=== PATIENT | male | born 1950 | race Caucasian/White ===

== ENCOUNTER 2017-11-20 20:04 | Emergency (ER) | payer OTHER ==
[~2017-11-20] VITALS: Ht 177.8 cm; Wt 81.8 kg
[2017-11-20] MEDS ORDERED: ATOR80TA59 (20:13)
[2017-11-20] MEDS ORDERED: MULT1TAB18 PO (20:13)
[2017-11-20] MEDS ORDERED: FISH120012 PO (20:13)
[2017-11-20] MEDS ORDERED: FOLI800C PO (20:13)
[2017-11-20] MEDS ORDERED: ELIQ5TAB (20:13)
[2017-11-20] MEDS ORDERED: ATEN25TA (20:13)
[2017-11-20] MEDS ORDERED: MORPHINE 2 MG/ML 1ML SYRINGE IV PRN (20:45)
[2017-11-20] MEDS ORDERED: ONDANSETRON 4MG/2ML VIAL (J2405) IV ONE (20:45)
[2017-11-20 20:57] LABS: BASO % 0.3 % (0.0-1.0); EOS # 0.1 10^3/uL (0.0-0.50); EOS % 1.1 % (0.0-3.0); IMMATURE GRANULOCYTE % 0.3 % (0-0); LYMPH # 1.5 10^3/uL (1.5-4.5); LYMPH % 15.9 % (24.0-44.0); MEAN CORPUSCULAR HEMOGLOBIN 32.2 pg (27.0-33.0); MEAN CORPUSCULAR HGB CONC 34.6 g/dl (32.0-36.5); MEAN CORPUSCULAR VOLUME 93.2 fl (80.0-96.0); MONO # 0.5 10^3/uL (0.0-0.8); MONO % 5.3 % (0.0-5.0); NEUTROPHILS # 7.5 10^3/uL (1.8-7.7); NEUTROPHILS % 77.1 % (36.0-66.0); PLATELET COUNT, AUTOMATED 162 10^3/uL (150-450); RED CELL DISTRIBUTION WIDTH 11.9 % (11.5-14.5); WHITE BLOOD COUNT 9.7 10^3/uL (4.0-10.0)
[2017-11-20 21:08] LABS: INR 1.14
[2017-11-20 21:23] LABS: ALBUMIN 4.1 GM/DL (3.2-5.2); ALBUMIN/GLOBULIN RATIO 1.17 (1.00-1.93); ALKALINE PHOSPHATASE 119 U/L (45-117); ALT/SGPT 23 U/L (12-78); ANION GAP 7 MEQ/L (8-16); AST/SGOT 12 U/L (7-37); BILIRUBIN,DIRECT 0.4 MG/DL (0.0-0.2); BILIRUBIN,TOTAL 1.2 MG/DL (0.2-1.0); BLOOD UREA NITROGEN 22 MG/DL (7-18); CALCIUM LEVEL 8.9 MG/DL (8.8-10.2); CARBON DIOXIDE LEVEL 27 MEQ/L (21-32); CHLORIDE LEVEL 105 MEQ/L (98-107); CREATININE FOR GFR 1.13 MG/DL (0.70-1.30); GLOMERULAR FILTRATION RATE > 60.0 (>49); GLUCOSE, FASTING 164 MG/DL (80-110); POTASSIUM SERUM 4.2 MEQ/L (3.5-5.1); SODIUM LEVEL 139 MEQ/L (136-145); TOTAL PROTEIN 7.6 GM/DL (6.4-8.2)
[2017-11-20] MEDS ORDERED: ISOVUE-370 76% 100ML VIAL (Q9967) As Ordered ONE (21:32)
--- NOTE | 2017-11-20 22:30 | REPUSA ---
CT of the abdomen and pelvis with contrast Clinical statement: Pain. Technique: Multiple axial CT images were obtained from the base of the lungs through the floor of the pelvis utilizing 5 mm axial slices after administration of nonionic intravenous contrast. Coronal an d sagittal reconstructions were also obtained. No comparison is available. Findings: Chest: The visualized lung bases are clear. Abdomen: There is a focal low attenuation lesion in the neck of the pancreas, measuring 1.2 x 1.8 cm. Distal to this site is significant pancreatic ductal dilatation, measuring up to 12 mm. There is no biliary ductal dilatation. The liver, spleen, kidneys, gallbladder, and adrenal glands are grossly un remarkable. There is a simple cyst in the posterior left kidney measuring 2.2 x 2.1 cm. The aorta dem onstrates moderate diffuse atherosclerosis. There is a borderline infrarenal abdominal aortic aneurys m measuring 3.0 x 2.6 cm. There is no evidence of dissection. There is no evidence of abdominal lymph adenopathy or ascites. Pelvis: The bowel is unremarkable, with no obstructive or inflammatory changes. The urinary bladder i s within normal limits. The prostate is enlarged measuring 5.2 x 5.6 cm. There is no evidence of pelv ic lymphadenopathy or ascites. Bones: There are no suspicious osseous abnormalities seen. There is mild degenerative disc disease at L3/L4. Impression: 1. Suspected hypodense mass the neck of the pancreas causing significant distal pancreatic ductal dil atation. Pancreatic neoplasm must be the primary clinical concern. Follow-up is recommended as clinic ally indicated. 2. No evidence of intrahepatic or extrahepatic biliary ductal dilatation. 3. No evidence of lymphadenopathy. 4. Moderate diffuse atherosclerosis of the abdominal aorta, with borderline infrarenal abdominal aort ic aneurysm. No evidence of dissection. 5. No obstructive or inflammatory bowel changes. 6. Simple left renal cyst. 7. Enlarged prostate. 8. Mild degenerative disc disease at L3/L4.
[2017-11-21] MEDS ORDERED: NS 1,000 ML IV ONE
[2017-11-21 01:17] VITALS: BP 120/88
--- NOTE | 2017-11-21 17:03 | ECGEPIP ---
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
== END 2017-11-21 01:23 | disposition short-term general hospital (02) ==
LOC: M ED 20:04
DX: K86.9 Disease of pancreas, unspecified (principal); I25.10 Atherosclerotic heart disease of native coronary artery without angina pectoris; I48.91 Unspecified atrial fibrillation; Z95.5 Presence of coronary angioplasty implant and graft; Z79.899 Other long term (current) drug therapy; Z79.01 Long term (current) use of anticoagulants; Z88.0 Allergy status to penicillin; F17.210 Nicotine dependence, cigarettes, uncomplicated
CPT/HCPCS: 74177; 80048; 80076; 81001; 82550; 82553; 83690; 84484; 85025; 85610; 85730; 86850; 86900; 86901; 93005; 93041; 96374; 96375; 99285; J2405; Q9967

== ENCOUNTER → 2018-02-02 | Outpatient (REF) | payer MEDICARE, OTHER ==
[2018-02-02 11:40] LABS: ANION GAP 5 MEQ/L (8-16); BLOOD UREA NITROGEN 23 MG/DL (7-18); CALCIUM LEVEL 9.2 MG/DL (8.8-10.2); CARBON DIOXIDE LEVEL 29 MEQ/L (21-32); CHLORIDE LEVEL 99 MEQ/L (98-107); CREATININE FOR GFR 1.17 MG/DL (0.70-1.30); GLOMERULAR FILTRATION RATE > 60.0 (>49); IRON (FE) 65 UG/DL (65-175); PSA SCREENING 2.73 NG/ML (< 4.0); SODIUM LEVEL 133 MEQ/L (136-145)
[2018-02-02 12:20] LABS: TOTAL 25(OH) VITAMIN D 29.1 NG/ML (30.0-100.0)
[2018-02-02 12:40] LABS: ESTIMATED AVERAGE GLUCOSE 252 MG/DL (60-110); HEMOGLOBIN A1c 10.4 %
[2018-02-02 13:04] LABS: VITAMIN B12 LEVEL 600 PG/ML (247-911)
[2018-02-02 13:34] LABS: GLUCOSE, FASTING 439 MG/DL (70-100)
== END ==
LOC: M SFHCPLAZ 09:08
DX: C25.9 Malignant neoplasm of pancreas, unspecified (principal); R53.83 Other fatigue; R35.8 Other polyuria; N40.0 Benign prostatic hyperplasia without lower urinary tract symptoms; Z12.5 Encounter for screening for malignant neoplasm of prostate; R73.01 Impaired fasting glucose; Z79.899 Other long term (current) drug therapy
CPT/HCPCS: 83540

== ENCOUNTER → 2018-02-24 | Outpatient (REF) | payer OTHER, MEDICARE ==
[2018-02-24 19:39] LABS: CA19-9 TUMOR MARKER,CARBOHYDRA 64.8 U/ML (<35.0)
== END ==
LOC: M LAB REF 18:38
DX: C25.9 Malignant neoplasm of pancreas, unspecified (principal)
CPT/HCPCS: 86301

== ENCOUNTER → 2018-03-03 | Outpatient (REF) | payer OTHER, MEDICARE ==
[2018-03-03 20:07] LABS: CA19-9 TUMOR MARKER,CARBOHYDRA 26.9 U/ML (<35.0)
== END ==
LOC: M LAB REF 16:37
DX: C25.9 Malignant neoplasm of pancreas, unspecified (principal)
CPT/HCPCS: 86301

== ENCOUNTER → 2018-03-31 | Outpatient (REF) | payer OTHER ==
[2018-03-31 21:37] LABS: CA19-9 TUMOR MARKER,CARBOHYDRA 16.3 U/ML (<35.0)
== END ==
LOC: M LAB REF 19:19
DX: C25.0 Malignant neoplasm of head of pancreas (principal)
CPT/HCPCS: 86301

== ENCOUNTER → 2018-04-08 | Outpatient (CLI) | payer OTHER ==
[~2018-04-08] MED LIST: ISOVUE-370 76% 100ML VIAL (Q9967) As Ordered
== END ==
LOC: M RAD 17:11
DX: C25.9 Malignant neoplasm of pancreas, unspecified (principal)
CPT/HCPCS: Q9967

== ENCOUNTER → 2018-04-10 | Outpatient (CLI) | payer OTHER ==
[~2018-04-10] MED LIST changes: -ISOVUE-370 76% 100ML VIAL (Q9967) As Ordered; +PROHANCE 279.3MG/ML 15ML VIAL (A9576) As Ordered
== END ==
LOC: M RAD 12:51
DX: K86.89 Other specified diseases of pancreas (principal); K86.2 Cyst of pancreas
CPT/HCPCS: A9576

== ENCOUNTER → 2018-04-29 | Outpatient (CLI) | payer OTHER | LOC: M RAD 12:26 | DX: M79.89 Other specified soft tissue disorders (principal); C25.9 Malignant neoplasm of pancreas, unspecified | CPT/HCPCS: 93971 ==

== ENCOUNTER 2018-05-31 22:14 | Emergency (ER) | payer OTHER ==
[2018-05-31] MEDS: HYDROmorphone HCL 1 MG/ML SYRINGE (J1170) IV (23:49)
[2018-05-31] MEDS: NS 1,000 ML IV (23:49)
[2018-05-31 23:50] LABS: BASO % 0.4 % (0.0-1.0); EOS # 0.1 10^3/uL (0.0-0.50); EOS % 2.3 % (0.0-3.0); HEMATOCRIT 36.4 % (42.0-52.0); HEMOGLOBIN 11.9 g/dl (13.5-17.5); IMMATURE GRANULOCYTE % 0.4 % (0-3.0); LYMPH # 1.6 10^3/uL (1.5-4.5); LYMPH % 28.6 % (24.0-44.0); MEAN CORPUSCULAR HEMOGLOBIN 33.1 pg (27.0-33.0); MEAN CORPUSCULAR HGB CONC 32.7 g/dl (32.0-36.5); MEAN CORPUSCULAR VOLUME 101.4 fl (80.0-96.0); MONO # 0.5 10^3/uL (0.0-0.8); MONO % 8.2 % (0.0-5.0); NEUTROPHILS # 3.4 10^3/uL (1.8-7.7); NEUTROPHILS % 60.1 % (36.0-66.0); PLATELET COUNT, AUTOMATED 130 10^3/uL (150-450); RED BLOOD COUNT 3.59 10^6/uL (4.30-6.10); RED CELL DISTRIBUTION WIDTH 13.7 % (11.5-14.5); WHITE BLOOD COUNT 5.6 10^3/uL (4.0-10.0)
[2018-06-01 00:15] LABS: LACTIC ACID SEPSIS PROTOCOL 0.8 MMOL/L (0.4-2.0)
[2018-06-01 00:18] LABS: ALBUMIN 3.3 GM/DL (3.2-5.2); ALKALINE PHOSPHATASE 106 U/L (45-117); ALT/SGPT 19 U/L (12-78); AMYLASE 33 U/L (25-115); ANION GAP 7 MEQ/L (8-16); AST/SGOT 17 U/L (7-37); BILIRUBIN,DIRECT 0.4 MG/DL (0.0-0.2); BILIRUBIN,TOTAL 0.8 MG/DL (0.2-1.0); BLOOD UREA NITROGEN 20 MG/DL (7-18); CALCIUM LEVEL 8.6 MG/DL (8.8-10.2); CARBON DIOXIDE LEVEL 28 MEQ/L (21-32); CHLORIDE LEVEL 108 MEQ/L (98-107); CK-MB VALUE MASS 2.1 NG/ML (<3.6); CPK CREATINE PHOSPHOKINASE 79 U/L (39-308); CREATININE FOR GFR 1.01 MG/DL (0.70-1.30); GLOMERULAR FILTRATION RATE > 60.0 (>49); GLUCOSE, FASTING 136 MG/DL (70-100); LIPASE 177 U/L (73-393); MB/CK RELATIVE INDEX 2.65 (< OR =4); POTASSIUM SERUM 4.2 MEQ/L (3.5-5.1); SODIUM LEVEL 143 MEQ/L (136-145); TOTAL PROTEIN 6.6 GM/DL (6.4-8.2); TROPONIN I < 0.02 NG/ML (< 0.10)
[2018-06-01] MEDS ORDERED: ISOVUE-370 76% 100ML VIAL (Q9967) As Ordered (00:28)
== END 2018-06-01 02:10 | disposition home or self-care (01) ==
LOC: M ED 22:14
DX: C25.9 Malignant neoplasm of pancreas, unspecified (principal); I48.91 Unspecified atrial fibrillation; I10 Essential (primary) hypertension; Z95.5 Presence of coronary angioplasty implant and graft; Z72.0 Tobacco use; N28.1 Cyst of kidney, acquired; I70.0 Atherosclerosis of aorta; I71.4 Abdominal aortic aneurysm, without rupture; Z79.899 Other long term (current) drug therapy; Z88.0 Allergy status to penicillin
CPT/HCPCS: J1170

== ENCOUNTER → 2018-08-11 | Outpatient (REF) | payer OTHER ==
[2018-08-14 12:37] LABS: CA19-9 TUMOR MARKER,CARBOHYDRA 27.5 U/ML (<35.0)
== END ==
LOC: M LAB REF 10:50
DX: C25.0 Malignant neoplasm of head of pancreas (principal)
CPT/HCPCS: 86301

== ENCOUNTER → 2018-10-15 | Outpatient (CLI) | payer OTHER, MEDICARE ==
[2018-10-15 14:50] LABS: CREATININE FOR GFR 1.09 MG/DL (0.70-1.30); GLOMERULAR FILTRATION RATE > 60.0 (>49)
[2018-10-15 14:50] LABS: BLOOD UREA NITROGEN 13 MG/DL (7-18)
== END ==
LOC: M LAB 13:25
DX: C25.9 Malignant neoplasm of pancreas, unspecified (principal)
CPT/HCPCS: 82565

== ENCOUNTER → 2018-11-19 | Outpatient (CLI) | payer OTHER ==
[~2018-11-19] MED LIST changes: +ASPI1TAB PO; +ASPI325T25 PO; +ATEN25TA PO; +ATOR80TA59 PO; +ELIQ5TAB PO; +FISH120012 PO; +FISH5CAP PO; +FOLI800C PO; +METF500T13 PO; +MIRA3350 PO; +MULT1TAB18 PO; +OLAN10TA2 PO; +OMEP20TA PO; +ONDA8TAB7 PO; +PROC10TA4 PO; -PROHANCE 279.3MG/ML 15ML VIAL (A9576) As Ordered; +VITMTA PO
--- NOTE | 2018-11-19 08:14 | REP ---
Right upper quadrant sonography: History: Liver lesion. The patient is status post Whipple procedure in May 2018. Comparison CT study June 01, 2018. Comparison CT study is also reviewed from November 20, 2017. There is an outside MRI study of the abdomen from December 22, [address] study from January 20 2018. Findings: Scanning through right upper quadrant of the abdomen shows pneumobilia. Common bile duct is normal measuring 0.6 cm in greatest diameter. The gallbladder is surgically absent. Pancreas is not seen in this patient status post Whipple procedure. No focal liver lesion is seen by sonography. The liver is not felt to be enlarged. There is no evidence of ascites or right renal abnormality. Right renal dimensions are 9.7 x 4.3 x 5.0 cm. No hydronephrosis seen. No right renal mass is noted. Impression: No liver lesion seen by sonography. The patient status post cholecystectomy and Whipple procedure. Electronically Signed by Jerry Choi MD 11/19/2018 08:06 A
== END ==
LOC: M RAD 06:40
PROVIDERS: ATTEND Nurse Practitioner Acute Care
DX: K76.9 Liver disease, unspecified (principal)

== ENCOUNTER → 2018-12-02 | Outpatient (REF) | payer OTHER ==
[~2018-12-02] MED LIST changes: +CREO6000 PO; +LACT10SO29 PO; +LANTINJ4 SC; +OXYC1SOL3 PO
[2018-12-02 17:24] LABS: CREATININE, URINE 45.4 MG/DL; MALB URINE SIEMENS 6.1 MG/L; MAU/CREAT RATIO 13.4 MCG/MG (0.0-30.0)
[2018-12-02 17:31] LABS: ALBUMIN 2.8 GM/DL (3.2-5.2); BLOOD UREA NITROGEN 22 MG/DL (7-18); CALCIUM LEVEL 8.3 MG/DL (8.8-10.2); CARBON DIOXIDE LEVEL 28 MEQ/L (21-32); CHLORIDE LEVEL 95 MEQ/L (98-107); CREATININE FOR GFR 1.09 MG/DL (0.70-1.30); FOLATE > 24.0 NG/ML; GLOMERULAR FILTRATION RATE > 60.0 (>49); GLUCOSE, FASTING 597 MG/DL (70-100); NT-PRO BNP 1921 PG/ML (<125); POTASSIUM SERUM 4.6 MEQ/L (3.5-5.1); PREALBUMIN 7.7 MG/DL (20.0-40.0); SODIUM LEVEL 131 MEQ/L (136-145); VITAMIN B12 LEVEL 846 PG/ML
[2018-12-02 17:33] LABS: HEMOGLOBIN A1c 10.2 %
[2018-12-02 17:37] LABS: BASO % 0.4 % (0.0-1.0); HEMATOCRIT 38.5 % (42.0-52.0); HEMOGLOBIN 12.8 g/dl (13.5-17.5); LYMPH # 0.9 10^3/uL (1.5-4.5); LYMPH % 17.4 % (24.0-44.0); MEAN CORPUSCULAR HEMOGLOBIN 32.7 pg (27.0-33.0); MEAN CORPUSCULAR HGB CONC 33.2 g/dl (32.0-36.5); MEAN CORPUSCULAR VOLUME 98.2 fl (80.0-96.0); MONO # 0.3 10^3/uL (0.0-0.8); MONO % 6.2 % (0.0-5.0); NEUTROPHILS % 75.6 % (36.0-66.0); PLATELET COUNT, AUTOMATED 143 10^3/uL (150-450); RED BLOOD COUNT 3.92 10^6/uL (4.30-6.10); WHITE BLOOD COUNT 5.3 10^3/uL (4.0-10.0)
== END ==
LOC: M SFHCPLAZ 12:22
PROVIDERS: ATTEND Physician Assistant
DX: E46 Unspecified protein-calorie malnutrition (principal); I95.9 Hypotension, unspecified; E11.65 Type 2 diabetes mellitus with hyperglycemia
CPT/HCPCS: 36415; 80048; 82040; 82043; 82607; 82746; 83036; 83880; 84134; 84630; 85025; G0463

== ENCOUNTER 2019-01-20 12:14 | Emergency (ER) | payer OTHER ==
[~2019-01-20] VITALS: Ht 177.8 cm; Wt 52.7 kg
[~2019-01-20 12:14] MED LIST changes: +CREO12CA PO
[2019-01-20] MEDS ORDERED: ALFU10TA2 PO (12:34)
[2019-01-20] MEDS ORDERED: ASPI-222 PO (12:34)
[2019-01-20 13:04] LABS: BASO % 0.6 % (0.0-1.0); HEMOGLOBIN 10.8 g/dl (13.5-17.5); LYMPH % 21.3 % (24.0-44.0); MEAN CORPUSCULAR HEMOGLOBIN 32.7 pg (27.0-33.0); MEAN CORPUSCULAR HGB CONC 32.7 g/dl (32.0-36.5); MONO # 0.3 10^3/uL (0.0-0.8); MONO % 6.3 % (0.0-5.0); NEUTROPHILS # 3.4 10^3/uL (1.8-7.7); NEUTROPHILS % 71.6 % (36.0-66.0); PLATELET COUNT, AUTOMATED 120 10^3/uL (150-450); WHITE BLOOD COUNT 4.8 10^3/uL (4.0-10.0)
[2019-01-20 13:36] LABS: CALCIUM LEVEL 8.6 MG/DL (8.8-10.2); CREATININE FOR GFR 1.28 MG/DL (0.70-1.30); GLOMERULAR FILTRATION RATE 59.1 (>42); MB/CK RELATIVE INDEX 1.26 (< OR =4); POTASSIUM SERUM 3.9 MEQ/L (3.5-5.1); TROPONIN I 0.04 NG/ML (< 0.10)
--- NOTE | 2019-01-20 13:44 | REP ---
Chest one-view HISTORY: Chest pain Comparison: 08/21/2018 The lungs are clear. The heart is normal in size. The pulmonary vasculature is normal in appearance. An [id number]-[id number] catheter is present. Impression: No acute disease. Electronically Signed by John Badillo MD 01/20/2019 01:36 P
[2019-01-20] MEDS ORDERED: NS 1,000 ML IV ONE (14:00)
--- NOTE | 2019-01-20 14:41 | REP ---
KUB, ONE VIEW: HISTORY: Abdominal pain. Air is present in the small and large intestine. There are no air fluid levels or dilated loops of intestine. There is no pneumoperitoneum. A mild amount of stool is present in the colon. IMPRESSION: Nonspecific bowel gas pattern. Electronically Signed by John Badillo MD 01/20/2019 02:48 P
[2019-01-20 16:03] LABS: INFLUENZA A AMPLIFICATION NEGATIVE (NEGATIVE); INFLUENZA B AMPLIFICATION NEGATIVE (NEGATIVE)
[2019-01-20 17:31] VITALS: BP 101/67
--- NOTE | 2019-01-21 07:58 | ECGEPIP ---
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
[2019-01-21] MEDS ORDERED: OXYC-517 PO (17:33)
[2019-01-21] MEDS ORDERED: OXYC1SOL3 PO (17:33)
[2019-01-21] MEDS ORDERED: LACT10SO29 PO (17:33)
== END 2019-01-20 17:34 | disposition home or self-care (01) ==
LOC: M ED 12:14
DX: E72.20 Disorder of urea cycle metabolism, unspecified (principal); K52.9 Noninfective gastroenteritis and colitis, unspecified; E11.9 Type 2 diabetes mellitus without complications; C25.9 Malignant neoplasm of pancreas, unspecified; I48.91 Unspecified atrial fibrillation; K21.9 Gastro-esophageal reflux disease without esophagitis; E78.5 Hyperlipidemia, unspecified; N40.0 Benign prostatic hyperplasia without lower urinary tract symptoms; Z96.89 Presence of other specified functional implants; Z79.899 Other long term (current) drug therapy; Z79.01 Long term (current) use of anticoagulants; Z88.0 Allergy status to penicillin

== ENCOUNTER 2019-01-21 12:33 | Observation (INO) | payer OTHER ==
[~2019-01-21] VITALS: Ht 180.3 cm; Wt 53.5 kg
[~2019-01-21 12:33] MED LIST changes: +ALFU10TA2 PO; +ASPI-222 PO
--- NOTE | 2019-01-21 13:33 | REP ---
CT Head without contrast HISTORY: Trauma COMPARISON: None Areas of decreased attenuation are present in the periventricular white matter. This represents small-vessel ischemic disease. There is no intraparenchymal hemorrhage, acute infarct, mass or midline shift. The ventricular system and cortical sulci are dilated consistent with minimal volume loss. There is no extra cerebral collection. There is no fracture. The visualized sinuses are clear. Soft tissue swelling is present over the right frontal bone. IMPRESSION: 1. Small vessel ischemic disease. 2. Minimal volume loss. Electronically Signed by John Badillo MD 01/21/2019 01:25 P
[2019-01-21 13:38] LABS: BASO % 0.2 % (0.0-1.0); HEMATOCRIT 33.8 % (42.0-52.0); HEMOGLOBIN 11.2 g/dl (13.5-17.5); LYMPH # 0.7 10^3/uL (1.5-4.5); LYMPH % 10.4 % (24.0-44.0); MEAN CORPUSCULAR HEMOGLOBIN 32.7 pg (27.0-33.0); MEAN CORPUSCULAR HGB CONC 33.1 g/dl (32.0-36.5); MEAN CORPUSCULAR VOLUME 98.5 fl (80.0-96.0); MONO # 0.3 10^3/uL (0.0-0.8); MONO % 4.1 % (0.0-5.0); NEUTROPHILS # 5.5 10^3/uL (1.8-7.7); NEUTROPHILS % 84.7 % (36.0-66.0); PLATELET COUNT, AUTOMATED 127 10^3/uL (150-450); RED BLOOD COUNT 3.43 10^6/uL (4.30-6.10); WHITE BLOOD COUNT 6.5 10^3/uL (4.0-10.0)
--- NOTE | 2019-01-21 13:40 | REP ---
Chest one-view HISTORY: Altered mental status Comparison: 01/20/2019 The lungs are clear. The heart is normal in size. The pulmonary vasculature is normal in appearance. An Zfnlnz-J-Hnpz catheter is present. Impression: No acute disease. Electronically Signed by John Badillo MD 01/21/2019 01:32 P
[2019-01-21 14:04] LABS: ALBUMIN 2.8 GM/DL (3.2-5.2); ALT/SGPT 61 U/L (12-78); BILIRUBIN,DIRECT 0.7 MG/DL (0.0-0.2); BILIRUBIN,TOTAL 1.7 MG/DL (0.2-1.0); BLOOD UREA NITROGEN 23 MG/DL (7-18); CALCIUM LEVEL 8.6 MG/DL (8.8-10.2); CARBON DIOXIDE LEVEL 26 MEQ/L (21-32); CHLORIDE LEVEL 105 MEQ/L (98-107); CPK CREATINE PHOSPHOKINASE 291 U/L (39-308); CREATININE FOR GFR 1.17 MG/DL (0.70-1.30); ETHYL ALCOHOL (ETHANOL) < 0.003 % (0.000-0.010); GLOMERULAR FILTRATION RATE > 60.0 (>42); GLUCOSE, FASTING 89 MG/DL (70-100); MB/CK RELATIVE INDEX 1.79 (< OR =4); POTASSIUM SERUM 3.5 MEQ/L (3.5-5.1); SODIUM LEVEL 137 MEQ/L (136-145); TOTAL PROTEIN 6.4 GM/DL (6.4-8.2); TROPONIN I 0.04 NG/ML (< 0.10)
[2019-01-21] MEDS ORDERED: GENTAMICIN 0.3% OPHTH SOL 5 ML BTL OU ONE (16:00)
[2019-01-21] MEDS ORDERED: OXYC-517 PO (17:33)
[2019-01-21] MEDS ORDERED: LACT10SO29 PO (17:33)
[2019-01-21] MEDS ORDERED: OXYC1SOL3 PO (17:33)
[2019-01-21] MEDS: NS 1,000 ML IV SCH (17:41)
--- NOTE | 2019-01-21 18:11 | ECGEPIP ---
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
[2019-01-21] MEDS ORDERED: DEXTROSE 50% 50 ML SYRINGE IV PRN (18:30)
[2019-01-21] MEDS ORDERED: GLUCAGON FOR INJ 1 MG VIAL (J1610) SC PRN (18:30)
[2019-01-21] MEDS ORDERED: GLUCOSE 4 GM CHEW TABLET PO PRN (18:30)
[2019-01-21] MEDS ORDERED: MORPHINE 4 MG/ML 1ML VIAL/SYRINGE (J2270) IV ONE (18:45)
--- NOTE | 2019-01-21 18:56 | HPE ---
DATE OF ADMISSION: 01/21/2019 CHIEF COMPLAINT: Found down and unresponsive. HISTORY OF PRESENT ILLNESS: This is a 68-year-old gentleman with past medical history of recent diagnosis of pancreatic cancer 1 year ago status post Whipple surgery, diabetes, on Lantus, hypertension, hyperlipidemia, atrial fibrillation, on Eliquis, coronary artery disease. He was found down by his family, who went to go pick him up today for a scheduled oncology appointment. Daughter was at bedside and helped with the history. She reports that patient had an appointment with Dr. Morel, and today she went to go pick him up, and she found him face down, unresponsive with his left eye wide open. They checked his sugar, and it was around 24. Emergency medical services (EMS) was called, and his sugar was also in the 20s. He was given dextrose on the field with improvement in his mental status. Patient himself reports that he thinks he took 80 units of Lantus last night instead of his usual 8 units. He did not take insulin the morning of admission, he says. He is normally compliant with his medications. Per family, his functional status has continued to decline, and he has been eating very poorly at home. They are preparing meals for him every day and taking it to his home, but he is apparently still taking in poor oral, and family is concerned about his ability to continue to take care of himself. Emergency room reviewed patient's oncology records and saw that there was a push for hospice and palliative care, and this was discussed with the patient and family, and they are requesting a hospice meeting tomorrow. Patient would like to speak to his oncologist prior to committing to hospice just to followup on his prognosis. Patient would like peripherally inserted central catheter (PICC) line removed prior to going home with hospice. He has apparently not been on chemotherapy except for one treatment after his Whipple, which he did not tolerate well. Patient currently denies any pain and is alert and oriented and otherwise denies complaints. REVIEW OF SYSTEMS: Negative in 14/14 systems except as noted above. PAST MEDICAL HISTORY: As noted above in history of present illness (HPI). PAST SURGICAL HISTORY: Patient had a Whipple surgery a year ago. He also has a history of coronary artery stents many years ago. HOME MEDICATIONS: - Lantus 10 units at bedtime - metformin 500 mg at bedtime - Alfuzosin 10 mg at bedtime - fish oil 1200 mg daily - folic acid 800 mg daily - oxycodone 5 mg by mouth every 4 to every 12 as needed for pain - Eliquis 5 mg at bedtime - aspirin 325 at bedtime - Lipitor 80 mg at bedtime - lactulose 30 mL by mouth twice daily - multivitamin one tablet daily - Creon 12,000 units, one capsule by mouth three times a day ALLERGIES: Patient is allergic to PENICILLINS. FAMILY HISTORY: Patient's biological mother and sister had ovarian cancer, and father had lung cancer. He is adopted but was able to obtain his biological family history. SOCIAL HISTORY: Patient lives alone and is . No recreational drug use or alcohol. PHYSICAL EXAMINATION: VITAL SIGNS: Patient currently afebrile to 96.4, blood pressure 118/81, heart rate of 148, respiratory rate 12, saturating 100% on room air. GENERAL: Patient is quite frail, thin, and cachectic appearing. HEENT: Patient has a skin abrasion on his right forehead. Oropharynx clear. CARDIOVASCULAR: Irregularly irregular and tachycardic. LUNGS: Clear to auscultation bilaterally. ABDOMEN: Soft with some mild tenderness on the right side and nondistended. Whipple surgery incision is well healed. EXTREMITIES: No clubbing, cyanosis, or edema. NEUROLOGIC: Patient is alert and oriented times three. No focal neurologic deficits. MUSCULOSKELETAL: Moves all extremities equally. SKIN: Forehead abrasion otherwise intact. PSYCHIATRIC: Mood stable. LABORATORY DATA: CBC with a white count of 6.5, hemoglobin of 11, platelets of 127. Chemistry with a creatinine of 1.17, calcium of 3.5, ammonia 56. Alkaline phosphatase elevated to 207, total bilirubin 1.7, direct bilirubin 0.7. Alcohol level is negative. IMAGING: Patient had a CT head done that shows small-vessel ischemic disease, minimal volume loss. No acute process. Chest x-ray shows no acute disease. ASSESSMENT AND PLAN: This is a 68 gentleman with past medical history of coronary artery disease and stents, diabetes, hypertension, hyperlipidemia, atrial fibrillation, on Eliquis, recent pancreatic cancer, status post Whipple 1 year ago, who presents with hypoglycemia, altered mental status, and failure to thrive. 1. Hypoglycemia, now resolved. Patient is now alert and oriented times three. Follows commands. I am holding his home Lantus and just placing him on sliding scale. He can have just a regular diet given his history of pancreatic cancer and planned transition to hospice. His blood sugars have been acceptable here in the emergency room. 2. Failure to thrive. Patient's failure to thrive likely is secondary to worsening pancreatic cancer. Family would like a hospice meeting to help make a decision on the transition to hospice. 3. Pancreatic cancer. Patient would like a consult by Dr. Morel to confirm that there are no other treatment options for his pancreatic cancer and is otherwise open the possible transition to home hospice. Family is quite supportive and wants home hospice for the patient. They plan to be present at home 24 hours. Hospice consult has already been placed, and they plan to see him tomorrow. He is currently not having any pain, and therefore no further pain medications needed at this time. I have also placed a social work and physical therapy (PT) consult to facilitate possible placement. 4. History of atrial fibrillation. Will continue his home Eliquis for now. He is a bit tachycardic with rapid ventricular rate, and I am giving him normal saline at 75 mL an hour, because I think he is somewhat dehydrated from being down for a possible long period of time. If he persists in rapid ventricular rate (RVR), primary team can consider initiating a beta fermín. 5. Deep vein thrombosis (DVT) prophylaxis. Patient is on Eliquis already. 6. Patient follows by Dr. Barnes as an outpatient and will see him on the hospitalist service tomorrow.
[2019-01-21 19:06] LABS: AMPHETAMINES LEVEL URINE NEGATIVE (NEGATIVE); BARBITURATES URINE NEGATIVE (NEGATIVE); BENZODIAZEPINES URINE NEGATIVE (NEGATIVE); CANNABINOIDS URINE NEGATIVE (NEGATIVE); COCAINE METABOLITE URINE NEGATIVE (NEGATIVE); METHADONE URINE NEGATIVE (NEGATIVE); OPIATES URINE NEGATIVE (NEGATIVE); PHENCYCLIDINE URINE NEGATIVE (NEGATIVE)
[2019-01-21] MEDS: HumaLOG INSULIN (NovoLOG) PER UNIT SC SCH (21:00)
[2019-01-21] MEDS: LACTULOSE 20 GM/30 ML SYRUP UD PO SCH (23:03)
[2019-01-21] MEDS: ASPIRIN ENTERIC 325 MG TAB PO SCH (23:03)
[2019-01-21] MEDS: APIXABAN 5 MG TAB (ELIQUIS) PO SCH (23:04)
[2019-01-21] MEDS: ATORVASTATIN 20 MG TAB PO SCH (23:04)
[2019-01-21] MEDS: ACETAMINOPHEN TAB 650MG DOSE (2X325MG) PO PRN (23:05)
[2019-01-22 06:00] VITALS: BP 106/64
[2019-01-22 07:02] LABS: HEMATOCRIT 30.3 % (42.0-52.0); HEMOGLOBIN 10.2 g/dl (13.5-17.5); MEAN CORPUSCULAR HEMOGLOBIN 32.3 pg (27.0-33.0); MEAN CORPUSCULAR HGB CONC 33.7 g/dl (32.0-36.5); MEAN CORPUSCULAR VOLUME 95.9 fl (80.0-96.0); PLATELET COUNT, AUTOMATED 113 10^3/uL (150-450); RED BLOOD COUNT 3.16 10^6/uL (4.30-6.10); WHITE BLOOD COUNT 5.3 10^3/uL (4.0-10.0)
[2019-01-22 07:30] LABS: BLOOD UREA NITROGEN 20 MG/DL (7-18); CALCIUM LEVEL 8.1 MG/DL (8.8-10.2); CARBON DIOXIDE LEVEL 22 MEQ/L (21-32); CHLORIDE LEVEL 106 MEQ/L (98-107); CREATININE FOR GFR 0.92 MG/DL (0.70-1.30); GLOMERULAR FILTRATION RATE > 60.0 (>42); GLUCOSE, FASTING 182 MG/DL (70-100); POTASSIUM SERUM 3.5 MEQ/L (3.5-5.1); SODIUM LEVEL 137 MEQ/L (136-145)
[2019-01-22] MEDS: NS 1,000 ML IV SCH ×2 (08:06→20:58)
[2019-01-22] MEDS: HumaLOG INSULIN (NovoLOG) PER UNIT SC SCH ×4 (08:07→20:58)
[2019-01-22] MEDS: ACETAMINOPHEN TAB 650MG DOSE (2X325MG) PO PRN (08:08)
[2019-01-22] MEDS: MULTIVITAMINS/MINERALS THERAP 1 TAB PO SCH (08:08)
[2019-01-22] MEDS: LACTULOSE 20 GM/30 ML SYRUP UD PO SCH ×2 (08:08→20:57)
[2019-01-22] MEDS: CREON-12 CAPSULE PO SCH ×3 (08:08→17:35)
[2019-01-22] MEDS: PERCOCET 5MG/325MG TAB PO PRN ×2 (12:34→20:58)
[2019-01-22 14:00] VITALS: BP 95/60
--- NOTE | 2019-01-22 14:03 | IPN ---
DATE: 01/22/2019 Patient examined at bedside. States he still feels weak overall. He has no other complaints. He states that he was found unresponsive and was brought into the ER with blood sugars in the 20s. Per the patient, he was not wearing his glasses and remembers accidentally injecting 80 units of Lantus instead of his regular 8. He still has a decreased appetite and is requesting to meet with his oncologist, Dr. Morel, for further details about his medical care and treatment options for his pancreatic cancer. PHYSICAL EXAMINATION: VITALS: Temperature 98.4, pulse 70, respirations 18, blood pressure 106/64, MAP of 78, pulse oximetry 98% on room air. GENERAL: Frail appearing, visibly fatigued elderly gentleman, resting in bed in no acute distress. Alert and oriented times three. HEENT: Normocephalic. There is some dried blood from his recent fall on his forehead. Extraocular muscles are intact. Anicteric sclera. Moist mucous membranes. NECK: Supple. CARDIAC: Irregular rhythm. Rate is controlled. Has atrial fibrillation. No audible murmurs. LUNGS: Clear to auscultation bilaterally. No wheezing, rhonchi or rales. ABDOMEN: Soft, nontender, nondistended. Positive bowel sounds throughout. EXTREMITIES: 2+ radial pulses bilaterally. No peripheral edema. SKIN: No visible lesions or ulcerations. LABS: WBC 5.3, hemoglobin and hematocrit 10.2 and 30.3, platelets 113. Electrolytes normal. Creatinine 0.92. IMPRESSION/PLAN: 68-year-old gentleman with a history of pancreatic cancer status post Whipple procedure one year ago. Overall has been declining. Came in for loss of consciousness secondary to unintentional accidental hypoglycemia. 1. Generalized weakness and fatigue. Patient states that he has had decreased appetite and generalized weakness ever since starting chemo. He has implied that he does not want to further continue with chemo and has stated that he would like to discuss with Dr. Morel his other options for treatment and possibly hospice. Dr. Morel is consulted. Appreciate her input. Hospice consult also in place. Dietary, social service and physical therapy evaluation also ordered. Continue on IV fluids and supportive care. 2. Loss of consciousness, secondary to accidental insulin overdose. The patient states he was not wearing his glasses and accidentally injected 80 of Lantus instead of 8. He denies any other symptoms prior to collapsing including no chest pain, lightheadedness, or dizziness. Currently is stable and blood sugars are well controlled. Continue on insulin sliding scale. 3. Insulin dependent diabetes mellitus type 2. See above. 4. Hypertension. Well controlled. Not on any medications. Continue IV fluids. 5. Hyperlipidemia. Continue statin. 6. Atrial fibrillation. Rate is controlled chronically on Eliquis. 7. Coronary artery disease. Continue aspirin and statin. 8. Deep vein thrombosis (DVT) prophylaxis. Chronically Eliquis. DISPOSITION: Pending hospice and hematology/oncology consult. Poor prognosis overall. My faculty preceptor for this patient encounter was physically present during the encounter and was fully available. All aspects of the patient interview, examination, medical decision making process, and medical care plan development were reviewed and approved by the faculty preceptor. The faculty preceptor is aware and concurs with the plan as stated in the body of this note and will attest to such by his/her co-signature.
[2019-01-22] MEDS: APIXABAN 5 MG TAB (ELIQUIS) PO SCH (20:57)
[2019-01-22] MEDS: ASPIRIN ENTERIC 325 MG TAB PO SCH (20:57)
[2019-01-22] MEDS: ATORVASTATIN 20 MG TAB PO SCH (20:57)
[2019-01-22 22:00] VITALS: BP 102/67
[2019-01-23 02:00] VITALS: BP 99/66
[2019-01-23 06:00] VITALS: BP 105/63
[2019-01-23 07:13] LABS: HEMATOCRIT 30.6 % (42.0-52.0); MEAN CORPUSCULAR HEMOGLOBIN 32.6 pg (27.0-33.0); MEAN CORPUSCULAR HGB CONC 32.7 g/dl (32.0-36.5); MEAN CORPUSCULAR VOLUME 99.7 fl (80.0-96.0); PLATELET COUNT, AUTOMATED 114 10^3/uL (150-450); RED BLOOD COUNT 3.07 10^6/uL (4.30-6.10); WHITE BLOOD COUNT 4.8 10^3/uL (4.0-10.0)
[2019-01-23 07:40] LABS: BLOOD UREA NITROGEN 21 MG/DL (7-18); CALCIUM LEVEL 8.1 MG/DL (8.8-10.2); CARBON DIOXIDE LEVEL 23 MEQ/L (21-32); CHLORIDE LEVEL 108 MEQ/L (98-107); CREATININE FOR GFR 1.12 MG/DL (0.70-1.30); GLOMERULAR FILTRATION RATE > 60.0 (>42); GLUCOSE, FASTING 185 MG/DL (70-100); SODIUM LEVEL 142 MEQ/L (136-145)
[2019-01-23] MEDS: MULTIVITAMINS/MINERALS THERAP 1 TAB PO SCH (09:22)
[2019-01-23] MEDS: HumaLOG INSULIN (NovoLOG) PER UNIT SC SCH ×4 (09:22→20:56)
[2019-01-23] MEDS: LACTULOSE 20 GM/30 ML SYRUP UD PO SCH ×2 (09:22→20:55)
[2019-01-23] MEDS: CREON-12 CAPSULE PO SCH ×3 (09:22→18:25)
[2019-01-23] MEDS: NS 1,000 ML IV SCH ×2 (09:23→11:09)
[2019-01-23 10:00] VITALS: BP 88/63
[2019-01-23] MEDS: PERCOCET 5MG/325MG TAB PO PRN ×2 (13:26→20:55)
[2019-01-23 14:00] VITALS: BP 129/76
--- NOTE | 2019-01-23 16:33 | IPN ---
DATE: 01/23/2019 Patient examined at bedside. No acute changes from previous days. He continues to feel weak overall. He states he met with Dr. Morel yesterday and is aware that he has a poor prognosis and states about 3 months to live, per Oncologist. He has no other complaints today. PHYSICAL EXAMINATION: VITAL SIGNS: Temperature 98.5, pulse 102, respirations 17, blood pressure (BP) 105/63, mean arterial pressure (MAP) of 77, pulse oximetry 98% on room air. GENERAL: Elderly, frail-appearing gentleman, sitting up in bed. Is visibly fatigued. No acute distress. Alert and oriented times three. HEENT: Normocephalic. Extraocular muscles intact. Anicteric sclerae. Moist mucous membranes. NECK: Supple. CARDIAC: Irregular rhythm. Rate is controlled. Borderline tachycardic. Has atrial fibrillation. LUNGS: Clear bilaterally. No wheezing, rhonchi, or rales. Equal chest rise bilaterally. ABDOMEN: Soft, nontender, nondistended. Positive bowel sounds. EXTREMITIES: Radial pulse 2+ bilaterally. No peripheral edema. SKIN: No visible lesions or ulcerations. LABORATORY DATA: WBC 4.8, hemoglobin and hematocrit 10 and 30, platelets 114. BUN and creatinine 21 and 1.12. IMPRESSION AND PLAN: A 68-year-old gentleman with a history of pancreatic cancer, status post Whipple procedure 1 year ago and has been overall declining in the past few months since starting chemotherapy. Came in for loss of consciousness secondary unintentional accidental hypoglycemia. 1. Pancreatic cancer. He is status post Whipple procedure 1 year ago and follows with Dr. Morel with chemotherapy, which he states that he does not want to continue with, as it has been wearing him out more. He continues to have generalized fatigue and is in the process of setting up hospice for home. He spoke with Dr. Morel yesterday and is aware of his poor prognosis and was told by her that he has about 3 months remaining. Currently we are awaiting hospice to be set up at home, which will likely be January 25. Until then, given that the patient does not feel strong enough to go home and it would be unsafe, we will keep him here until hospice is set up. I had a discussion with Mr. Muller regarding comfort options temporarily while he is still in the hospital; however, he states he would like to continue with his current plan of care and all of his regular medications and daily blood work. Support and encouragement provided, and we will make every attempt to make him as comfortable as possible prior to discharge with hospice on Friday. 2. Generalized weakness and fatigue. Continues to have decreased appetite and anorexia. Will continue on IV fluids and pain control. Hospice consult and dietary and social service consults in place. 3. Insulin-dependent diabetes mellitus, type 2. Continue on insulin sliding scale and consistent-carbohydrate diet. No longer hypoglycemia episodes. 4. Hypertension is controlled. Not on any medications. Continue IV fluids. 5. Hyperlipidemia. Continue statin. 6. Atrial fibrillation, rate controlled. Chronically on Eliquis. 7. Coronary artery disease (CAD). Continue aspirin and statin. 8. Deep vein thrombosis (DVT) prophylaxis. Chronically on Eliquis. DISPOSITION: Awaiting hospice to be set up at home. Likely discharge on Friday. Poor prognosis overall, which patient is aware of. My faculty preceptor for this patient encounter was physically present during the encounter and was fully available. All aspects of the patient interview, examination, medical decision making process, and medical care plan development were reviewed and approved by the faculty preceptor. The faculty preceptor is aware and concurs with the plan as stated in the body of this note and will attest to such by his/her co-signature. STACI
[2019-01-23] MEDS: APIXABAN 5 MG TAB (ELIQUIS) PO SCH (20:55)
[2019-01-23] MEDS: ASPIRIN ENTERIC 325 MG TAB PO SCH (20:55)
[2019-01-23] MEDS: ATORVASTATIN 20 MG TAB PO SCH (20:55)
[2019-01-23 22:00] VITALS: BP 100/67
[2019-01-24 02:00] VITALS: BP 101/70
[2019-01-24 06:00] VITALS: BP 101/62
[2019-01-24 06:51] LABS: HEMATOCRIT 31.6 % (42.0-52.0); HEMOGLOBIN 10.4 g/dl (13.5-17.5); MEAN CORPUSCULAR HEMOGLOBIN 32.8 pg (27.0-33.0); MEAN CORPUSCULAR HGB CONC 32.9 g/dl (32.0-36.5); MEAN CORPUSCULAR VOLUME 99.7 fl (80.0-96.0); PLATELET COUNT, AUTOMATED 114 10^3/uL (150-450); RED BLOOD COUNT 3.17 10^6/uL (4.30-6.10); WHITE BLOOD COUNT 5.1 10^3/uL (4.0-10.0)
[2019-01-24 07:09] LABS: BLOOD UREA NITROGEN 21 MG/DL (7-18); CALCIUM LEVEL 8.3 MG/DL (8.8-10.2); CARBON DIOXIDE LEVEL 26 MEQ/L (21-32); CHLORIDE LEVEL 108 MEQ/L (98-107); CREATININE FOR GFR 1.11 MG/DL (0.70-1.30); GLOMERULAR FILTRATION RATE > 60.0 (>42); GLUCOSE, FASTING 149 MG/DL (70-100); POTASSIUM SERUM 3.9 MEQ/L (3.5-5.1); SODIUM LEVEL 141 MEQ/L (136-145)
[2019-01-24] MEDS: MULTIVITAMINS/MINERALS THERAP 1 TAB PO SCH (09:07)
[2019-01-24] MEDS: ACETAMINOPHEN TAB 650MG DOSE (2X325MG) PO PRN (09:07)
[2019-01-24] MEDS: LACTULOSE 20 GM/30 ML SYRUP UD PO SCH ×2 (09:07→21:37)
[2019-01-24] MEDS: HumaLOG INSULIN (NovoLOG) PER UNIT SC SCH ×4 (09:08→21:40)
[2019-01-24] MEDS: CREON-12 CAPSULE PO SCH ×3 (09:08→18:25)
[2019-01-24 10:00] VITALS: BP 106/65
--- NOTE | 2019-01-24 12:28 | IPNPDOC ---
Subjective Date Seen The patient was seen on 01/24/19. Subjective Chief Complaint/HPI No acute overnight events noted. Objective Physical Examination General Exam: Positive: Alert, Cooperative, No Acute Distress ENT Exam: Positive: Atraumatic, Mucous membr. moist/pink Neck Exam: Negative: JVD Chest Exam: Positive: Clear to auscultation, Normal air movement Heart Exam: Positive: Rate Normal, Normal S1, Normal S2 Abdomen Exam: Positive: Soft, Tenderness (mild tenderness to deep palpation in the supraumbilical/epigastric region. No rebound tenderness, guarding, or rigidity noted.) Extremity Exam: Negative: Tenderness, Swelling Psych Exam: Positive: Oriented x 3 Assessment /Plan Plan/VTE VTE Prophylaxis Ordered?: Yes Plan Pancreatic cancer status post Whipple procedure 1 year ago and follows Follows with Dr. Morel of hematology/oncology, and states that he has been told that his prognosis is "3 more months." The patient has met with hospice here, and will go home with their services tomorrow Insulin-dependent diabetes mellitus, type 2 Consistent-carbohydrate diet Hyperlipidemia Continue statin. Atrial fibrillation, rate controlled on Eliquis. Coronary artery disease (CAD) Continue aspirin and statin. Deep vein thrombosis (DVT) prophylaxis Chronically on Eliquis. DISPOSITION: Awaiting hospice to be set up at home. Likely D/C Tomorrow (01/25/19) VS, I&O, 24H, [place] Vital Signs/I&O Vital Signs Date Time Temp Pulse Resp B/P (MAP) Pulse Ox O2 Delivery O2 Flow Rate FiO2 01/24/19 10:00 98.5 66 16 106/65 (79) 97 01/21/19 20:22 Room Air I&O- Last 24 Hours up to 6 AM 01/24/19 06:00 Intake Total 850 ml Output Total 0 ml Balance 850 ml Laboratory Data 24H LABS Laboratory Tests 2 01/23/19 16:40: Bedside Glucose (Misc Panel) 303H 01/23/19 20:16: Bedside Glucose (Misc Panel) 240H 01/24/19 06:37: Nucleated Red Blood Cells % (auto) 0.0, Anion Gap 7L, Glomerular Filtration Rate > 60.0, Blood Urea Nitrogen 21H, Creatinine 1.11, Sodium Level 141, Potassium Level 3.9, Chloride Level 108H, Carbon Dioxide Level 26, Calcium Level 8.3L 01/24/19 11:33: Bedside Glucose (Misc Panel) 248H CBC/BMP Laboratory Tests 01/24/19 06:37 Red Blood Count 3.17 L, Mean Corpuscular Volume 99.7 H, Mean Corpuscular Hemoglobin 32.8, Mean Corpuscular Hemoglobin Concent 32.9, Red Cell Distribution Width 14.6 H, Calcium Level 8.3 L CATHY ISLAS MD Jan 24, 2019 12:28
[2019-01-24] MEDS: NS 1,000 ML IV SCH (13:01)
[2019-01-24 14:00] VITALS: BP 113/77
[2019-01-24 18:00] VITALS: BP 102/73
[2019-01-24] MEDS: APIXABAN 5 MG TAB (ELIQUIS) PO SCH (21:37)
[2019-01-24] MEDS: ATORVASTATIN 20 MG TAB PO SCH (21:37)
[2019-01-24] MEDS: ASPIRIN ENTERIC 325 MG TAB PO SCH (21:37)
[2019-01-24 22:00] VITALS: BP 108/61
[2019-01-25] MEDS: NS 1,000 ML IV SCH (01:19)
[2019-01-25 05:55] LABS: HEMATOCRIT 31.5 % (42.0-52.0); HEMOGLOBIN 10.2 g/dl (13.5-17.5); MEAN CORPUSCULAR HEMOGLOBIN 32.3 pg (27.0-33.0); MEAN CORPUSCULAR HGB CONC 32.4 g/dl (32.0-36.5); MEAN CORPUSCULAR VOLUME 99.7 fl (80.0-96.0); PLATELET COUNT, AUTOMATED 122 10^3/uL (150-450); RED BLOOD COUNT 3.16 10^6/uL (4.30-6.10); WHITE BLOOD COUNT 6.8 10^3/uL (4.0-10.0)
[2019-01-25 06:00] VITALS: BP 124/73
[2019-01-25 06:01] LABS: BLOOD UREA NITROGEN 23 MG/DL (7-18); CALCIUM LEVEL 8.1 MG/DL (8.8-10.2); CARBON DIOXIDE LEVEL 23 MEQ/L (21-32); CHLORIDE LEVEL 108 MEQ/L (98-107); CREATININE FOR GFR 1.12 MG/DL (0.70-1.30); GLOMERULAR FILTRATION RATE > 60.0 (>42); GLUCOSE, FASTING 271 MG/DL (70-100); POTASSIUM SERUM 4.2 MEQ/L (3.5-5.1); SODIUM LEVEL 139 MEQ/L (136-145)
[2019-01-25] MEDS: HumaLOG INSULIN (NovoLOG) PER UNIT SC SCH ×2 (07:30→12:00)
--- NOTE | 2019-01-25 08:02 | CR.PDOC ---
General Date of Consultation: Jan 22, 2019 Consultation REASON FOR CONSULTATION/CHIEF COMPLAINT: . grant family wanted an opinion on Hospice vs palliative care options HISTORY OF PRESENT ILLNESS: The ptient has been failing and has had a PS of 3-4/4 on the ECOG scale He has been admitted has a PS of 4/4 now is at the bedside for discussion . ALLERGIES: Please see below. HOME MEDICATIONS: Please see below. PAST MEDICAL HISTORY: 1. Metastatic pancreatic cancer . 2. . PAST SURGICAL HISTORY: 1. 2. SOCIAL HISTORY: Marital status and/or living arrangements: [ ] Children: Employment: [un emplyed due to disability ] Tobacco use: ETOH: Illicit drug use: IV drug use: Other relevant social factors: REVIEW OF SYSTEMS: CONSTITUTIONAL: [generally weak tired fatigued all the time ]. HEENT: [NC at perrl eomi sclera white on icteric CARDIOVASCULAR: [n chest pain GENITOURINARY: negtive . MUSCULOSKELETAL: [genally weak]. GASTROINTESTINAL: [no nv dairrhea constiatoin ]. SKIN: [no rashes ]. NEUROLOGICAL: . PSYCHIATRIC: . ENDOCRINE: . HEMATOLOGIC/LYMPHATIC: . ALLERGIC/IMMUNOLOGIC: . PHYSICAL EXAMINATION: VITAL SIGNS: Please see below. GENERAL APPEARANCE: NC at l[place] . HEENT: . RESPIRATORY: . CARDIOVASCULAR: . ABDOMEN: [distended pain on light palpation ]. EXTREMITIES: [no cce ]. NEUROLOGICAL: . PSYCHIATRIC: . LABORATORY DATA: Please see below. ASSESSMENT/PLAN: 1. stage IV pancreatic cancer end stage disease Hospice appropriate I had a discussion with the patient and his regarding his disease, his current state and his inability to be able to undergo any more chemo He has terminal stage of his disease now . I agree with HOSPICE option at present Vital Signs/I&O Vital Signs Date Time Temp Pulse Resp B/P (MAP) Pulse Ox O2 Delivery O2 Flow Rate FiO2 01/25/19 06:00 97.5 105 20 124/73 (90) 95 01/21/19 20:22 Room Air I&O- Last 24 Hours up to 6 AM 01/25/19 06:00 Intake Total 200 ml Output Total 0 ml Balance 200 ml Laboratory Data Labs 24H Laboratory Tests 2 01/24/19 11:33: Bedside Glucose (Misc Panel) 248H 01/24/19 14:29: Bedside Glucose (Misc Panel) 328H 01/24/19 16:54: Bedside Glucose (Misc Panel) 346H 01/24/19 20:12: Bedside Glucose (Misc Panel) 273H 01/25/19 05:19: Nucleated Red Blood Cells % (auto) 0.0, Anion Gap 8, Glomerular Filtration Rate > 60.0, Blood Urea Nitrogen 23H, Creatinine 1.12, Sodium Level 139, Potassium Level 4.2, Chloride Level 108H, Carbon Dioxide Level 23, Calcium Level 8.1L CBC/BMP Laboratory Tests 01/25/19 05:19 Red Blood Count 3.16 L, Mean Corpuscular Volume 99.7 H, Mean Corpuscular Hemoglobin 32.3, Mean Corpuscular Hemoglobin Concent 32.4, Red Cell Distribution Width 14.7 H, Calcium Level 8.1 L Allergies Coded Allergies: Penicillins (Verified Allergy, Intermediate, rash, 11/20/17) Home Medications Scheduled (Folic Acid) 800 Mcg Cap, 800 MCG PO QHS, (Reported) (Fish Oil 1200 mg) 1 Cap Cap, 1,200 MG PO DAILY, (Reported) Alfuzosin Hydrochloride (Alfuzosin HCl ER) 10 Mg Tab, 10 MG PO QHS, (Reported) Apixaban Base (Eliquis) 5 Mg Tab, 5 MG PO QHS, (Reported) Aspirin (Aspirin) 325 Mg Tab, 325 MG PO QHS, (Reported) Atorvastatin Calcium (Atorvastatin Calcium) 80 Mg Tab, 80 MG PO QHS, (Reported) Insulin Glargine (Lantus Solostar) 100 Unit/Ml Inj, 10 UNIT SC QPM, (Reported) Lactulose (Lactulose) 10 Gm/15 Ml Meagan, 30 ML PO BID for constipation, (Reported) FAMILY STATES HE WAS TO START TAKING THIS TID FOR 48 HOURS YESTERDAY 01/20/2019 Metformin Hydrochloride (Metformin HCl) 500 Mg Tab, 500 MG PO QHS, (Reported) Multivitamins *[facility] STOCKED* (Thera M Plus *[facility]OCK[facility]*) 1 Tab Tab, 1 TAB PO DAILY, (Reported) Pancreatic Enzymes (Creon 22835 Unit) 1 Ea Capcr, 12,000 UNIT PO TID, (Reported) Scheduled PRN (Oxycodone HCl) 5 Mg/5 Ml Meagan, 5 MG PO Q4H PRN for PAIN, (Reported) Oxycodone HCl (Oxycodone HCl) 5 Mg Tab, 5 MG PO Q12H PRN for PAIN, (Reported) Viviana Morel MD Jan 25, 2019 08:02
[2019-01-25] MEDS: LACTULOSE 20 GM/30 ML SYRUP UD PO SCH (08:51)
[2019-01-25] MEDS: MULTIVITAMINS/MINERALS THERAP 1 TAB PO SCH (08:52)
[2019-01-25] MEDS: CREON-12 CAPSULE PO SCH ×2 (08:52→12:30)
[2019-01-25] MEDS: PERCOCET 5MG/325MG TAB PO PRN (08:53)
[2019-01-25] MEDS ORDERED: PILL CRUSHER/CUTTER 1 EACH XX PRN (09:15)
--- NOTE | 2019-01-25 10:45 | DS.PDOC ---
Discharge Summary General Date of Admission Jan 21, 2019 at 17:19 Date of Discharge 01/25/19 Attending Physician: CATHY ISLAS MD Specialist/Consultants Involve: Viviana Morel MD Discharge Summary PROCEDURES PERFORMED DURING STAY: None. ADMITTING DIAGNOSES: 1. Loss of consciousness 2/2 accidental insulin overdose 2. Accidental hypoglycemia 3. Generalized fatigue, deconditioning, and wasting 2/2 pancreatic cancer DISCHARGE DIAGNOSES: 1. Stage IV pancreatic cancer, terminal 2. Accidental hypoglycemia, resolved 3. Cachexia, frailty, malnourishment, muscle wasting 2/2 malignancy Insulin-dependent diabetes mellitus, type 2 Hyperlipidemia Atrial fibrillation, chronically on Eliquis Coronary artery disease COMPLICATIONS/CHIEF COMPLAINT: Failure To Thrive In Adult,Hypoglycemia. HISTORY OF PRESENT ILLNESS: 68 yo M with pancreatic cancer s/p [place] Procedure last year was found unresponsive at home and was brought into the ER with blood sugars in the 20s. Per the patient, he was not wearing his glasses and remembers accidentally injecting 80 units of Lantus instead of his regular 8. He still has a decreased appetite and is requesting to meet with his oncologist, Dr. Morel, for further details about his medical care and treatment options for his pancreatic cancer. He verbalized that he did not want to continue with Chemo as it had been "wearing me out ever since I started it." HOSPITAL COURSE: Patient was hospitalized, started on IV fluids, given supportive care. Hospice was consulted, as well as his oncologist Dr. Morel. Per her discussions with Mr. Muller, he has about 3 months to live, and he expressed interest in pursuing hospice, however declined [employer] status. He no longer had any episodes of hypoglycemia during his stay. Nutrition was a concern, however Mr. Muller himself refused parenteral nutrition, and refused appetite stimulating medication. On discharge, it was recommended that he stop taking insulin due to risk of hypoglycemia, as he already has minimal po intake. Hospice was set up at home, and patient was discharged to the care of his family at his daughter's home. DISCHARGE MEDICATIONS: Please see below. ALLERGIES: Please see below. PHYSICAL EXAMINATION ON DISCHARGE: VITAL SIGNS: Please see below. GENERAL: Elderly, frail-appearing gentleman. Is visibly fatigued. No acute d istress. Alert and oriented times three. Takes effort for him to speak HEENT: Normocephalic. Extraocular muscles intact. Anicteric sclerae. Moist mucous membranes. NECK: Supple. CARDIAC: Irregular rhythm. Rate is controlled. Has atrial fibrillation. LUNGS: Clear bilaterally. No wheezing, rhonchi, or rales. Equal chest rise bilaterally. ABDOMEN: Soft, nontender, nondistended. Positive bowel sounds. EXTREMITIES: Radial pulse 2+ bilaterally. No peripheral edema. LABORATORY DATA: Please see below. IMAGING: * 01/21/[address]: 1. Small vessel ischemic disease. 2. Minimal volume loss. * 01/21/2019 CXR: No acute disease. PROGNOSIS: terminal ACTIVITY: As tolerated. DIET: as tolerated DISPOSITION: home with Hospice. DISCHARGE INSTRUCTIONS: 1. Follow-up with PCP within one week, and with hospice as planned 2. Return to ER for emergency DISCHARGE CONDITION: Stable. TIME SPENT ON DISCHARGE: Greater than 35 minutes. Vital Signs/I&Os Vital Signs Date Time Temp Pulse Resp B/P (MAP) Pulse Ox O2 Delivery O2 Flow Rate FiO2 01/25/19 08:53 16 01/25/19 06:00 97.5 105 124/73 (90) 95 01/21/19 20:22 Room Air I&O- Last 24 Hours up to 6 AM 01/25/19 06:00 Intake Total 200 ml Output Total 0 ml Balance 200 ml Laboratory Data Labs 24H Laboratory Tests 2 01/24/19 11:33: Bedside Glucose (Misc Panel) 248H 01/24/19 14:29: Bedside Glucose (Misc Panel) 328H 01/24/19 16:54: Bedside Glucose (Misc Panel) 346H 01/24/19 20:12: Bedside Glucose (Misc Panel) 273H 01/25/19 05:19: Nucleated Red Blood Cells % (auto) 0.0, Anion Gap 8, Glomerular Filtration Rate > 60.0, Blood Urea Nitrogen 23H, Creatinine 1.12, Sodium Level 139, Potassium Level 4.2, Chloride Level 108H, Carbon Dioxide Level 23, Calcium Level 8.1L CBC/BMP Laboratory Tests 01/25/19 05:19 Red Blood Count 3.16 L, Mean Corpuscular Volume 99.7 H, Mean Corpuscular Hemoglobin 32.3, Mean Corpuscular Hemoglobin Concent 32.4, Red Cell Distribution Width 14.7 H, Calcium Level 8.1 L FSBS Laboratory Tests Test 01/24/19 11:33 01/24/19 14:29 01/24/19 16:54 01/24/19 20:12 Range/Units Bedside Glucose (Misc Panel) 248 328 346 273 83-110 MG/DL Discharge Medications Scheduled (Folic Acid) 800 Mcg Cap, 800 MCG PO QHS, (Reported) (Fish Oil 1200 mg) 1 Cap Cap, 1,200 MG PO DAILY, (Reported) Alfuzosin Hydrochloride (Alfuzosin HCl ER) 10 Mg Tab, 10 MG PO QHS, (Reported) Apixaban Base (Eliquis) 5 Mg Tab, 5 MG PO QHS, (Reported) Aspirin (Aspirin) 325 Mg Tab, 325 MG PO QHS, (Reported) Atorvastatin Calcium (Atorvastatin Calcium) 80 Mg Tab, 80 MG PO QHS, (Reported) Lactulose (Lactulose) 10 Gm/15 Ml Meagan, 30 ML PO BID for constipation, (Reported) FAMILY STATES HE WAS TO START TAKING THIS TID FOR 48 HOURS YESTERDAY 01/20/2019 Multivitamins *[facility] STOCKED* (Thera M Plus *[facility]OCK[facility]*) 1 Tab Tab, 1 TAB PO DA ODILIA, (Reported) Pancreatic Enzymes (Creon 20902 Unit) 1 Ea Capcr, 12,000 UNIT PO TID, (Reported) Scheduled PRN (Oxycodone HCl) 5 Mg/5 Ml Meagan, 5 MG PO Q4H PRN for PAIN, (Reported) Oxycodone HCl (Oxycodone HCl) 5 Mg Tab, 5 MG PO Q12H PRN for PAIN, (Reported) Allergies Coded Allergies: Penicillins (Verified Allergy, Intermediate, rash, 11/20/17) GME ATTESTATION GME ATTESTATION My faculty preceptor for this patient encounter was physically present during the encounter and was fully available. All aspects of the patient interview, examination, medical decision making process, and medical care plan development were reviewed and approved by the faculty preceptor. The faculty preceptor is aware and concurs with the plan as stated in the body of this note and will attest to such by his/her cosignature. MONIKA MARTINEZ DO Jan 25, 2019 09:17
[2019-01-25] MEDS ORDERED: LORA0.5T11 PO ×2 (11:04→13:38)
[2019-01-25] MEDS ORDERED: HYOS125TA PO (11:04)
[2019-01-25] MEDS ORDERED: MORP20SO3 PO ×2 (11:04→13:38)
[2019-01-25] MEDS ORDERED: SCOPOLAMINE 1MG TRANSDERMAL PATCH TOP SCH (15:00)
== END 2019-01-25 16:25 | disposition home or self-care (01) ==
LOC: M ED 12:33 → EDBD 12:33 → M ED INP 17:19 → M MS5PR 21:50
PROVIDERS: ADMIT Internal Medicine; ATTEND Internal Medicine
DX: C25.9 Malignant neoplasm of pancreas, unspecified (principal); T38.3X1A Poisoning by insulin and oral hypoglycemic [antidiabetic] drugs, accidental (unintentional), initial encounter; R64 Cachexia; E11.9 Type 2 diabetes mellitus without complications; E78.5 Hyperlipidemia, unspecified; I10 Essential (primary) hypertension; I25.10 Atherosclerotic heart disease of native coronary artery without angina pectoris; Z79.4 Long term (current) use of insulin; Z79.01 Long term (current) use of anticoagulants; Z79.82 Long term (current) use of aspirin; Z79.899 Other long term (current) drug therapy; Z88.0 Allergy status to penicillin
CPT/HCPCS: 36415; 70450; 71045; 80048; 80076; 80307; 81001; 82140; 82550; 82553; 84443; 84484; 85025; 85027; 93005; 93041; 94760; 96360; 96361; 97116; 97161; 97530; 99285; G0378; G0480